=== PATIENT | male | born 1995 | race Caucasian/White ===

== ENCOUNTER 2022-05-26 11:37 | Emergency (ER) | payer SELFPAY ==
[~2022-05-26] VITALS: Ht 182.9 cm; Wt 105.0 kg
[2022-05-26 11:39] VITALS: BP 137/86
[2022-05-26] MEDS ORDERED: LIDOCAINE HCL/PF 1% 10 MG/ML 5ML VIAL INFIL ONE (14:00)
[2022-05-26] MEDS ORDERED: ACETAMINOPHEN 325MG TABLET PO ONE (14:00)
[2022-05-26] MEDS ORDERED: BACITRACIN ZINC OINT UDPKT TOP ONE (14:00)
[2022-05-26] MEDS ORDERED: BO1 TP (17:21)
[2022-05-26] MEDS ORDERED: CEPH500C2 MT (17:21)
[2022-05-26] MEDS ORDERED: TETANUS, DIPHTHERIA, PERTUSSIS VAC/PF 0.5ML (>10YR OLD) IM ONE ×2 (17:30→17:45)
== END 2022-05-26 17:54 | disposition home or self-care (01) ==
LOC: ER 13:29
DX: L60.0 Ingrowing nail (principal)
CPT/HCPCS: 90471; 90715; 99283; Z7610